=== PATIENT | male | born 1955 | race Hispanic/Latino ===

== ENCOUNTER → 2024-03-23 | Outpatient (CLI) | payer OTHER | END | disposition home or self-care (01) | LOC: RAH 12:51 | PROVIDERS: ATTEND Internal Medicine | DX: I08.2 Rheumatic disorders of both aortic and tricuspid valves (principal) | CPT/HCPCS: 93306 ==

== ENCOUNTER → 2024-06-06 | Outpatient (CLI) | payer OTHER | END | disposition home or self-care (01) | LOC: LAB 15:38 | PROVIDERS: ATTEND Student in an Organized Health Care Education/Training Program | DX: I25.119 Atherosclerotic heart disease of native coronary artery with unspecified angina pectoris (principal) | CPT/HCPCS: 36415; 80048 ==

== ENCOUNTER 2024-07-05 08:10 | Observation (INO) | payer OTHER ==
[2024-07-03 11:41] LABS: BASOPHILS # (AUTO) 0.04 K/uL (0.00-0.20); BASOPHILS % (AUTO) 0.8 % (0.0-5.0); EOSINOPHILS # (AUTO) 0.13 K/uL (0.00-0.70); EOSINOPHILS % (AUTO) 2.7 % (0.0-8.0); IMMATURE GRANULOCYTE ABSOLUTE 0.01 K/uL (0-1); LYMPHOCYTES # (AUTO) 1.9 K/uL (1.0-4.8); LYMPHOCYTES % (AUTO) 40.2 % (21.0-51.0); MEAN CORPUSCULAR HEMOGLOBIN 29.6 pg (27.0-33.0); MEAN CORPUSCULAR HGB CONC 32.9 g/dL (32.0-36.0); MEAN CORPUSCULAR VOLUME 89.9 fL (79-99); MONOCYTES # (AUTO) 0.4 K/uL (0.1-1.0); MONOCYTES % (AUTO) 7.3 % (3.0-13.0); NEUTROPHILS # (AUTO) 2.3 K/uL (1.8-7.7); NEUTROPHILS % (AUTO) 48.8 % (40.0-77.0); PLATELET COUNT (AUTO) 214 K/uL (130-400); RED BLOOD CELL COUNT(AUTO) 4.56 MIL/uL (4.50-6.20); RED CELL DISTRIBUTION WIDTH 13.7 % (11.0-15.5); WHITE BLOOD COUNT (AUTO) 4.8 K/uL (4.8-10.8)
[2024-07-03 11:43] LABS: CREATININE 0.9 mg/dL (0.5-1.3); POTASSIUM 4.9 mmol/L (3.5-5.1)
[2024-07-03 11:53] LABS: ADD UA MICROSCOPIC NO; APPEARANCE,URINE CLEAR (CLEAR); BILIRUBIN,URINE NEGATIVE (NEGATIVE); COLOR,URINE LIGHT-YELLOW (YELLOW); GLUCOSE, URINE (UA) NEGATIVE (NEGATIVE); KETONES,URINE NEGATIVE (NEGATIVE); LEUKOCYTE ESTERASE ,URINE NEGATIVE Leu/uL (NEGATIVE); NITRATE,URINE NEGATIVE (NEGATIVE); OCCULT BLOOD,URINE NEGATIVE (NEGATIVE); PH,URINE 5.5 (5.0-8.0); PROTEIN,URINE NEGATIVE (NEGATIVE); UROBILINOGEN,URINE 0.2 mg/dL (0.2-1.0)
[2024-07-03 11:55] VITALS: BP 119/60; PULSE 55; RESP 16; TEMP 96.9
[2024-07-03 11:58] LABS: INR 1.06 (0.85-1.15); PROTHROMBIN TIME 11.4 SEC (9.6-11.6)
[2024-07-03 12:00] LABS: PARTIAL THROMBOPLASTIN TIME 29.2 SEC (26.3-35.5)
[2024-07-03 12:17] LABS: B-TYPE NATRIURETIC PEPTIDE 16 pg/mL (0-100)
[2024-07-05] VITALS (16 sets, daily range): BP systolic 115–145; BP diastolic 58–72; PULSE 47–62; RESP 15–20; TEMP 97.4–97.9; O2SAT 98–100
[~2024-07-05] VITALS: Ht 157.5 cm; Wt 61.0 kg
[~2024-07-05 08:10] MED LIST: AEC81 PO; ATOR10 PO; FAMO20TA8 PO; FINA5TAB41 PO; FISH1CAP27 PO; ISOS30TA92 PO; SIME80TA12 PO; TADA5TAB13 PO
[2024-07-05] MEDS ORDERED: VERAPAMIL HCL 2.5 MG/ML VIAL ONE (09:34)
[2024-07-05] MEDS ORDERED: LIDOCAINE HCL 400MG/20ML VIAL ONE (09:34)
[2024-07-05] MEDS ORDERED: IOHEXOL 350 MG/ML 100ML INFUS..BTL IV ONE (09:34)
[2024-07-05] MEDS ORDERED: HEParin-NS 1,000 UNIT/500 ML 1,000 ML IV ONE (09:35)
[2024-07-05] MEDS ORDERED: NITROGLYCERIN 50MG VIAL ONE (09:35)
[2024-07-05] MEDS ORDERED: MIDAZOLAM HCL 1 MG/ML 2ML VIAL ONE (09:47)
[2024-07-05] MEDS ORDERED: FENTanyl CITRate PF 50 MCG/1 ML 2ML VIAL ONE (09:47)
[2024-07-05] MEDS ORDERED: HEParin 10,000 UNIT/10ML (1,000 UNIT/ML) VIAL ONE (09:48)
[2024-07-05] MEDS ORDERED: ATROPINE 1MG SYG IVP ONE (10:34)
[2024-07-05] MEDS ORDERED: IOHEXOL-350 50ML VIAL IV ONE (11:07)
[2024-07-05] MEDS ORDERED: EPTIFIBATIDE 2 MG/ML 10 ML VIAL IVP ONE (11:18)
[2024-07-05] MEDS ORDERED: TICAGrelor 90 MG TABLET ONE (11:33)
[2024-07-05] MEDS: 0.9%NACL 1000ML 1,000 ML IV SCH (12:00)
[2024-07-05] MEDS: SIMETHICONE 80 MG TAB.CHEW PO SCH (16:21)
[2024-07-05] MEDS: acetaMINOPHEN WITH coDEINE 1 TAB TAB PO PRN (16:30)
[2024-07-05] MEDS: FISH OIL 1000 MG/CAP PO SCH (20:27)
[2024-07-05] MEDS: TICAGrelor 90 MG TABLET PO SCH (20:27)
[2024-07-05] MEDS: atorVAStatin 10 MG TABLET PO SCH (20:27)
[2024-07-05] MEDS: FINASTERIDE 5 MG TABLET PO SCH (20:27)
[2024-07-05] MEDS: FAMOTIDINE 20MG TAB PO SCH (20:27)
[2024-07-06 00:50] VITALS: BP 139/65; PULSE 54; RESP 18; TEMP 97.6
[2024-07-06 03:50] VITALS: BP 132/62; PULSE 51; RESP 18; TEMP 97.7
[2024-07-06 04:20] LABS: HEMATOCRIT 40.1 % (42-54); MEAN CORPUSCULAR HEMOGLOBIN 29.7 pg (27.0-33.0); MEAN CORPUSCULAR HGB CONC 33.7 g/dL (32.0-36.0); MEAN CORPUSCULAR VOLUME 88.1 fL (79-99); RED BLOOD CELL COUNT(AUTO) 4.55 MIL/uL (4.50-6.20); RED CELL DISTRIBUTION WIDTH 13.9 % (11.0-15.5); WHITE BLOOD COUNT (AUTO) 7.1 K/uL (4.8-10.8)
[2024-07-06 04:28] LABS: CREATININE 0.9 mg/dL (0.5-1.3)
[2024-07-06 08:00] VITALS: O2SAT 98
[2024-07-06] MEDS ORDERED: TICA90TA PO (08:10)
[2024-07-06 08:35] VITALS: BP 140/69; PULSE 53; RESP 16; TEMP 97.4
[2024-07-06] MEDS: TADALAFIL 5 MG PO SCH (09:00)
[2024-07-06] MEDS: ISOSORBIDE MONO 30MG SR TAB PO SCH (10:35)
[2024-07-06] MEDS: ASPIRIN 81 MG EC TAB PO SCH (10:35)
== END 2024-07-06 11:30 | disposition home or self-care (01) ==
LOC: DAH 08:10 → DAHIP 08:28 → 2AH 12:09
PROVIDERS: ADMIT Internal Medicine; ATTEND Internal Medicine
DX: I25.112 Atherosclerotic heart disease of native coronary artery with refractory angina pectoris (principal); E78.5 Hyperlipidemia, unspecified; Z79.899 Other long term (current) drug therapy
CPT/HCPCS: 80048 ×2; 83880; 85025; 85610; 85730; 81003; 36415 ×3; 71045; 93005 ×2; 93458; 92920; 93571; 85347 ×3; 82948 ×3; 85027; C1769 ×3; C1887 ×2; C1874 ×2; C1725 ×3; C1894; A4649; Q9965 ×2; G0378 ×24; J3010; J3490 ×3; J1644 ×2; J2250; J1327; Q9967 ×2; A4215; A4223 ×3; A4222; A4221; A4663; A4216; A4606; C9600 ×2; 99156; 99157; J0461

== ENCOUNTER → 2024-11-20 | Outpatient (CLI) | payer OTHER ==
[~2024-11-20] MED LIST changes: +TADA-54 PO; -TADA5TAB13 PO; +TICA90TA PO
[2024-11-20 12:25] LABS: BASOPHILS # (AUTO) 0.02 K/uL (0.00-0.20); BASOPHILS % (AUTO) 0.4 % (0.0-5.0); EOSINOPHILS # (AUTO) 0.19 K/uL (0.00-0.70); IMMATURE GRANULOCYTE ABSOLUTE 0.01 K/uL (0-1); LYMPHOCYTES # (AUTO) 1.6 K/uL (1.0-4.8); LYMPHOCYTES % (AUTO) 34.5 % (21.0-51.0); MEAN CORPUSCULAR HEMOGLOBIN 30.6 pg (27.0-33.0); MEAN CORPUSCULAR VOLUME 92.6 fL (79-99); MONOCYTES # (AUTO) 0.3 K/uL (0.1-1.0); MONOCYTES % (AUTO) 6.6 % (3.0-13.0); NEUTROPHILS # (AUTO) 2.6 K/uL (1.8-7.7); NEUTROPHILS % (AUTO) 54.3 % (40.0-77.0); PLATELET COUNT (AUTO) 265 K/uL (130-400); RED BLOOD CELL COUNT(AUTO) 4.32 MIL/uL (4.50-6.20); RED CELL DISTRIBUTION WIDTH 14.1 % (11.0-15.5); WHITE BLOOD COUNT (AUTO) 4.7 K/uL (4.8-10.8)
[2024-11-20 12:47] LABS: POTASSIUM 4.4 mmol/L (3.5-5.1)
== END | disposition home or self-care (01) ==
LOC: LAB 08:52
PROVIDERS: ATTEND Internal Medicine
DX: I25.119 Atherosclerotic heart disease of native coronary artery with unspecified angina pectoris (principal); E78.5 Hyperlipidemia, unspecified
CPT/HCPCS: 36415; 80048; 80061; 85025